=== PATIENT | male | born 1965 | race African-American/Black ===

== ENCOUNTER 2023-04-30 08:37 | Emergency (ER) | payer MEDICAID, OTHER ==
[~2023-04-30] VITALS: Ht 167.6 cm; Wt 75.0 kg
[2023-04-30 08:42] VITALS: O2SAT 97
[2023-04-30] MEDS: IBUPROFEN 600MG TABLET PO ONE (09:15)
[2023-04-30 11:40] LABS: BASOPHILS % 0.7 % (0.0-2.0); EOSINOPHILS % 0.3 % (0.0-5.0); HEMATOCRIT. 38.9 % (42.0-52.0); HEMOGLOBIN. 12.7 g/dL (14.0-18.0); LYMPHOCYTES % 16.1 % (20.0-50.0); MEAN CORPUSCULAR HEMOGLOBIN 28.9 pg (28.0-32.0); MEAN CORPUSCULAR HGB CONC 32.6 g/dL (31.0-37.0); MEAN CORPUSCULAR VOLUME 88.7 fL (80.0-94.0); MEAN PLATELET VOLUME 9.9 fl (7.4-10.4); MONOCYTES % 6.9 % (2.0-8.0); PLATELET 247 x1000/uL (130-400); RED BLOOD CELL COUNT 4.39 mill/uL (4.7-6.1); RED CELL DISTRIBUTION WIDTH 14.8 % (11.6-14.6); WHITE BLOOD COUNT 6.6 x1000/uL (4.5-11.0)
[2023-04-30 11:52] LABS: PARTIAL THROMBOPLASTIN TIME 27.1 sec (23.4-31.0); PROTHROMBIN TIME 10.4 sec (9.6-11.0)
[2023-04-30 12:11] LABS: ALANINE AMINOTRANSFERASE 21 IU/L (10-49); ALBUMIN 4.8 g/dL (3.2-4.8); ASPARTATE AMINOTRANSFERASE 29 IU/L (<34); BILIRUBIN TOTAL 0.5 mg/dL (0.1-1.0); CALCIUM 9.8 mg/dL (8.7-10.4); CHLORIDE 103 mEq/L (98-107); GLUCOSE 95 mg/dL (70-105); POTASSIUM 3.6 mEq/L (3.5-5.1); PROTEIN TOTAL 8.4 g/dL (6.0-8.3); SODIUM 139 mEq/L (136-145); UREA NITROGEN BLOOD 8 mg/dL (9-23)
[2023-04-30] MEDS ORDERED: IBUP-2029 MT (14:08)
[2023-04-30] MEDS ORDERED: LIDO700A30 TP (14:08)
[2023-04-30] MEDS ORDERED: METH-653 MT (14:10)
[2023-04-30] MEDS ORDERED: IOHEXOL-300 100 ML BOTTLE ONE (14:12)
[2023-04-30 14:20] LABS: CARBON DIOXIDE 26 mEq/L (21-32)
[2023-04-30 14:45] VITALS: BP 163/103; PULSE 80; RESP 18; TEMP 97.7
== END 2023-04-30 14:47 | disposition home or self-care (01) ==
LOC: ER 08:37
DX: S22.41XA Multiple fractures of ribs, right side, initial encounter for closed fracture (principal); V49.40XA Driver injured in collision with unspecified motor vehicles in traffic accident, initial encounter; Y93.89 Activity, other specified; Y92.89 Other specified places as the place of occurrence of the external cause; Y99.8 Other external cause status
CPT/HCPCS: 80053; 85025; 85610; 85730; 36415; 71101; 71260; 74177; 99285; Q9967; Z7610 ×2